=== PATIENT | female | born 1975 | race Asian ===

== ENCOUNTER 2023-09-04 09:24 | Inpatient (IN) ==
[2023-09-04] MEDS: Morphine 4 MG/ML VIAL (1 ml) IV ONE ×2 (10:20→14:32)
[2023-09-04] MEDS: Ondansetron 4 mg VIAL 2 MG/ML 2 ml VIAL IV ONE ×2 (10:20→13:10)
[2023-09-04] MEDS: Lactated Ringers 1000 ml BAG 1,000 ML IV ONE (10:34)
[2023-09-04 10:44] LABS: Hematocrit 20.7 % (35-45); Hemoglobin 5.3 g/dL (11.5-14.3); Mean Corpuscular Hemoglobin 13.5 pg (27-33); Mean Corpuscular Hgb Conc 25.6 g/dL (31-36); Mean Corpuscular Volume 52.8 fL (80-97); Mean Platelet Volume 8.4 fL (7.5-11.2); Platelet Count 374 10^3/uL (150-450); Red Blood Count 3.93 10^6/uL (3.63-4.92); Red Cell Distribution Width 22.6 % (12-17); White Blood Count 15.8 10^3/uL (3.8-11.8)
[2023-09-04 11:07] LABS: ABS Basophils 0.1 10^3/uL (0.0-0.1); ABS Eosinophils 0.1 10^3/uL (0.0-0.5); ABS Lymphocytes 1.1 10^3/uL (1.0-4.8); ABS Monocytes 0.7 10^3/uL (0.0-0.9); ABS Neutrophils 13.9 10^3/uL (1.5-7.6); ABS Nucleated RBC 0.02 10^3/ul; Acanthocytes 1+; Eosinophil % 0.4 %; Hypochromasia 3+; Lymphocyte % 6.9 %; Microcytosis 2+; Nucleated Red Blood Cells % 0.1 %/100WBC (0.0-0.8); Stomatocytes 1+; Target Cells 2+
[2023-09-04 11:30] LABS: ALT 24 U/L (7-52); AST 19 U/L (13-39); Albumin 4.3 g/dL (3.2-5.2); Albumin/Globulin Ratio 1.8 (1-3); Alkaline Phosphatase 152 U/L (35-149); Anion Gap 10 mmol/L (2-16); Blood Urea Nitrogen 8 mg/dL (6-24); C Reactive Protein 69.95 mg/L (<8.01); CO2 Carbon Dioxide 26 mmol/L (22-32); Calcium 8.9 mg/dL (8.6-10.3); Chloride 102 mmol/L (101-111); Creatinine, Serum 0.74 mg/dL (0.51-0.95); Globulin 2.4 g/dL (2-4); Glucose 124 mg/dL (70-100); Lipase 10 U/L (11.0-82.0); Potassium 3.1 mmol/L (3.5-5.0); Sodium 138 mmol/L (135-145); Total Bilirubin 0.7 mg/dL (0.2-1.0); Total Protein 6.7 g/dL (6.4-8.9); eGFR CKD-EPI 100.4 (>60)
[2023-09-04 11:36] LABS: HCG Pregnancy < 0.60 mIU/mL
[2023-09-04 11:38] LABS: Urine Appearance Clear; Urine Bilirubin Negative (Negative); Urine Blood 3+ (Negative); Urine Color Colorless; Urine Glucose Negative (Negative); Urine Ketones Negative (Negative); Urine Nitrite Negative (Negative); Urine Protein Negative (Negative); Urine Specific Gravity 1.009 (1.002-1.030); Urine Urobilinogen Negative (Negative); Urine pH 5.5 (5.0-8.0)
[2023-09-04 11:38] LABS: ABS Basophils 0.1 10^3/uL (0.0-0.1); ABS Eosinophils 0.1 10^3/uL (0.0-0.5); ABS Lymphocytes 1.3 10^3/uL (1.0-4.8); ABS Monocytes 0.7 10^3/uL (0.0-0.9); ABS Neutrophils 13.8 10^3/uL (1.5-7.6); ABS Nucleated RBC 0.02 10^3/ul; Eosinophil % 0.4 %; Hemoglobin 4.9 g/dL (11.5-14.3); Lymphocyte % 8.3 %; Mean Corpuscular Hemoglobin 13.5 pg (27-33); Mean Corpuscular Hgb Conc 25.5 g/dL (31-36); Mean Corpuscular Volume 52.8 fL (80-97); Mean Platelet Volume 8.4 fL (7.5-11.2); Nucleated Red Blood Cells % 0.1 %/100WBC (0.0-0.8); Platelet Count 359 10^3/uL (150-450); Red Blood Count 3.61 10^6/uL (3.63-4.92); Red Cell Distribution Width 22.9 % (12-17)
[2023-09-04 11:59] LABS: Urine Bacteria Absent /HPF (Absent); Urine Red Blood Cell 3+(>10/hpf) /HPF (0-Trace); Urine Squamous Epithelial Cell Present /HPF (Absent); Urine White Blood Cell 1+(6-10/hpf) /HPF (0-Trace)
[2023-09-04] MEDS: hydrALAZINE 20 mg/ml 1 ML Vial IV IV SLOW PU ONE (13:23)
[2023-09-04] MEDS: Labetalol IV 5 MG/ML 20 ml VIAL IV PUSH ONE (13:50)
[2023-09-04] MEDS ORDERED: Lorazepam PYXIS KEY PRN (14:16)
[2023-09-04] MEDS: niCARdipine 0.1MG/ML IVPREMIX 20 MG/200 ML BAG IV SCH (14:24)
[2023-09-04] MEDS: LORazepam 2 mg VIAL 1 ml IV PUSH ONE (14:32)
[2023-09-04] MEDS: Magnesium Sulfate 2 gm BAG 2 GM/50 ML BAG IVPB ONE (14:48)
[2023-09-04] MEDS: KCL 20 MEQ/100 ML IVPREMIX 20 MEQ/100 ML BAG IV ONE (15:54)
[2023-09-04 18:01] LABS: % Iron Saturation 5 % (15-55); .Transferrin 311 mg/dL (203-362); Iron < 20 ug/dL (50-212); Total Iron Binding Capacity 435 mcg/dL (250-450); Unsaturated Iron Binding 415 ug/dL
[2023-09-04] MEDS: Ondansetron 4 mg VIAL 2 MG/ML 2 ml VIAL IV PRN (18:19)
[2023-09-04] MEDS ORDERED: Metoprolol Tartrate 5 mg VIAL 5 ml VIAL (1 mg/ml) IV PRN (18:24)
[2023-09-04 18:26] LABS: Mean Corpuscular Hemoglobin 18.7 pg (27-33); Mean Corpuscular Hgb Conc 29.6 g/dL (31-36); Mean Corpuscular Volume 63.3 fL (80-97); Mean Platelet Volume 8.3 fL (7.5-11.2); Platelet Count 364 10^3/uL (150-450); Red Blood Count 4.27 10^6/uL (3.63-4.92); Red Cell Distribution Width 34.3 % (12-17); White Blood Count 26.4 10^3/uL (3.8-11.8)
[2023-09-04 18:39] LABS: Ferritin 4.7 ng/mL (11-307)
[2023-09-04] MEDS ORDERED: Prochlorperazine 5 mg/ml 2 ml VIAL (10 mg) IV PRN (19:06)
[2023-09-04 19:15] LABS: ABS Basophils 0.1 10^3/uL (0.0-0.1); ABS Lymphocytes 1.5 10^3/uL (1.0-4.8); ABS Monocytes 0.9 10^3/uL (0.0-0.9); ABS Neutrophils 23.8 10^3/uL (1.5-7.6); ABS Nucleated RBC 0.02 10^3/ul; Eosinophil % 0.1 %; Lymphocyte % 5.6 %; Nucleated Red Blood Cells % 0.1 %/100WBC (0.0-0.8)
[2023-09-04 19:18] LABS: Acanthocytes 1+; Anisocytosis 2+; Hypochromasia 2+; Microcytosis 3+; Polychromasia 1+
[2023-09-04 20:53] LABS: High Sensitivity Troponin 1 Hr 10 pg/mL (<15)
[2023-09-04] MEDS: Ferric Gluconate IV 250 MG in NS 0.9% 250 ml 200 ML IVPB SCH (21:10)
[2023-09-04] MEDS: Morphine 2 MG/ML SYRINGE IV ONE (21:12)
[2023-09-04] MEDS: Morphine 2 MG/ML SYRINGE IV PRN (21:15)
[2023-09-04] MEDS ORDERED: Morphine 2 MG/ML SYRINGE IV PRN (21:23)
[2023-09-04 21:56] LABS: High Sensitivity Troponin 3 Hr 16 pg/mL (<15)
[2023-09-05 01:10] LABS: Hematocrit 26.2 % (35-45); Hemoglobin 7.8 g/dL (11.5-14.3); Mean Corpuscular Hemoglobin 18.5 pg (27-33); Mean Corpuscular Hgb Conc 29.9 g/dL (31-36); Mean Corpuscular Volume 61.8 fL (80-97); Mean Platelet Volume 8.3 fL (7.5-11.2); Platelet Count 383 10^3/uL (150-450); Red Blood Count 4.24 10^6/uL (3.63-4.92); Red Cell Distribution Width 33.5 % (12-17)
[2023-09-05 01:11] LABS: ABS Basophils 0.2 10^3/uL (0.0-0.1); ABS Lymphocytes 1.7 10^3/uL (1.0-4.8); ABS Neutrophils 25.1 10^3/uL (1.5-7.6); ABS Nucleated RBC 0.05 10^3/ul; Eosinophil % 0.1 %; Lymphocyte % 6.2 %; Nucleated Red Blood Cells % 0.2 %/100WBC (0.0-0.8)
[2023-09-05 01:13] LABS: Microcytosis 2+
[2023-09-05 01:14] LABS: Anisocytosis 3+; Hypochromasia 2+; Polychromasia 1+
[2023-09-05] MEDS: Labetalol IV 5 MG/ML 20 ml VIAL IV PUSH PRN (06:03)
[2023-09-05 06:40] LABS: ABS Basophils 0.2 10^3/uL (0.0-0.1); ABS Lymphocytes 1.8 10^3/uL (1.0-4.8); ABS Monocytes 1.4 10^3/uL (0.0-0.9); ABS Neutrophils 25.9 10^3/uL (1.5-7.6); ABS Nucleated RBC 0.07 10^3/ul; Eosinophil % 0.1 %; Hematocrit 25.9 % (35-45); Hemoglobin 7.8 g/dL (11.5-14.3); Lymphocyte % 6.1 %; Mean Corpuscular Hemoglobin 18.5 pg (27-33); Mean Corpuscular Volume 61.5 fL (80-97); Mean Platelet Volume 8.4 fL (7.5-11.2); Nucleated Red Blood Cells % 0.2 %/100WBC (0.0-0.8); Platelet Count 394 10^3/uL (150-450); Red Blood Count 4.21 10^6/uL (3.63-4.92); Red Cell Distribution Width 33.5 % (12-17); White Blood Count 29.4 10^3/uL (3.8-11.8)
[2023-09-05 06:41] LABS: Anion Gap 15 mmol/L (2-16); Anisocytosis 3+; Blood Urea Nitrogen 7 mg/dL (6-24); CO2 Carbon Dioxide 23 mmol/L (22-32); Calcium 8.5 mg/dL (8.6-10.3); Chloride 100 mmol/L (101-111); Cholesterol 143 mg/dL; Creatinine, Serum 0.57 mg/dL (0.51-0.95); Glucose 106 mg/dL (70-100); HDL Cholesterol 41.5 mg/dL; Hypochromasia 2+; LDL Cholesterol 74 mg/dL; Microcytosis 2+; Polychromasia 1+; Sodium 138 mmol/L (135-145); Triglycerides 140 mg/dL; eGFR CKD-EPI 112.7 (>60)
[2023-09-05 06:53] LABS: TSH Ultra Thyroid Stim Horm 3.49 mcIU/mL (0.34-5.60)
[2023-09-05] MEDS: Iohexol 300 (CONTRAST) 10 ML SDV IV ONE (10:13)
[2023-09-05 13:10] LABS: Trichomonas vag NAA Female Negative (Negative)
[2023-09-05 13:25] LABS: Chlamydia trachomatis NAA Negative (Negative); Neisseria gonorrhoeae (GC) NAA Negative (Negative)
[2023-09-05] MEDS: CMCS:NORETHINDRONE ACETATE 5 MG TAB (NF) PO SCH (13:39)
[2023-09-05] MEDS: Metoprolol Tartrate 5 mg VIAL 5 ml VIAL (1 mg/ml) IV PRN (15:56)
[2023-09-05] MEDS: KCL 20 MEQ/100 ML IVPREMIX 20 MEQ/100 ML BAG IV SCH (17:58)
[2023-09-05] MEDS ORDERED: Dextran 70/Hypromellose Tears Eye Drops 15 ml BTL (for Artificials Tears) BOTH EYES PRN (21:10)
[2023-09-05] MEDS: Olopatadine 0.1% OPHTH (NF) 1 DROP BTL BOTH EYES SCH (22:47)
[2023-09-06 04:44] LABS: Hemoglobin 6.5 g/dL (11.5-14.3); Mean Corpuscular Hemoglobin 18.2 pg (27-33); Mean Corpuscular Hgb Conc 29.6 g/dL (31-36); Mean Corpuscular Volume 61.4 fL (80-97); Mean Platelet Volume 8.3 fL (7.5-11.2); Platelet Count 353 10^3/uL (150-450); Red Blood Count 3.58 10^6/uL (3.63-4.92); Red Cell Distribution Width 34.4 % (12-17); White Blood Count 33.8 10^3/uL (3.8-11.8)
[2023-09-06 05:00] LABS: Calcium 8.2 mg/dL (8.6-10.3); Creatinine, Serum 0.53 mg/dL (0.51-0.95); Magnesium 1.9 mg/dL (1.9-2.7); Potassium 3.4 mmol/L (3.5-5.0); eGFR CKD-EPI 114.7 (>60)
[2023-09-06 05:22] LABS: ABS Eosinophils 0.2 10^3/uL (0.0-0.5); ABS Lymphocytes 1.7 10^3/uL (1.0-4.8); ABS Monocytes 1.4 10^3/uL (0.0-0.9); ABS Neutrophils 30.4 10^3/uL (1.5-7.6); ABS Nucleated RBC 0.05 10^3/ul; Eosinophil % 0.5 %; Lymphocyte % 5.1 %; Nucleated Red Blood Cells % 0.2 %/100WBC (0.0-0.8)
[2023-09-06] MEDS: Potassium Chlor 10 meq TAB PO SCH (06:14)
[2023-09-06] MEDS: Magnesium Sulfate IV 1GM/100ML 1 GM/100 ML BAG IV ONE (08:22)
[2023-09-06 09:59] LABS: Hematocrit 26.4 % (35-45); Hemoglobin 8.1 g/dL (11.5-14.3)
[2023-09-06 12:13] LABS: Mean Corpuscular Hemoglobin 19.7 pg (27-33); Mean Corpuscular Hgb Conc 30.2 g/dL (31-36); Mean Corpuscular Volume 65.3 fL (80-97); Mean Platelet Volume 8.7 fL (7.5-11.2); Platelet Count 345 10^3/uL (150-450); Red Cell Distribution Width 35.1 % (12-17); White Blood Count 31.5 10^3/uL (3.8-11.8)
[2023-09-06] MEDS: Senna TAB 8.6 mg TAB PO SCH (12:49)
[2023-09-06 13:08] LABS: ABS Basophils 0.1 10^3/uL (0.0-0.1); ABS Eosinophils 0.1 10^3/uL (0.0-0.5); ABS Lymphocytes 2.2 10^3/uL (1.0-4.8); ABS Neutrophils 28.1 10^3/uL (1.5-7.6); ABS Nucleated RBC 0.03 10^3/ul; Anisocytosis 2+; Eosinophil % 0.3 %; Hypochromasia 2+; Microcytosis 3+; Nucleated Red Blood Cells % 0.1 %/100WBC (0.0-0.8); Polychromasia 1+
[2023-09-06] MEDS: Metoprolol Tartrate 5 mg VIAL 5 ml VIAL (1 mg/ml) IV PRN (22:30)
[2023-09-07 06:25] LABS: Hematocrit 27.1 % (35-45); Hemoglobin 8.6 g/dL (11.5-14.3); Mean Corpuscular Hemoglobin 20.6 pg (27-33); Mean Corpuscular Hgb Conc 31.6 g/dL (31-36); Mean Platelet Volume 8.2 fL (7.5-11.2); Platelet Count 334 10^3/uL (150-450); Red Blood Count 4.17 10^6/uL (3.63-4.92); Red Cell Distribution Width 35.1 % (12-17)
[2023-09-07 07:11] LABS: Calcium 8.8 mg/dL (8.6-10.3); Creatinine, Serum 0.58 mg/dL (0.51-0.95); Potassium 3.6 mmol/L (3.5-5.0); eGFR CKD-EPI 112.3 (>60)
[2023-09-07 07:27] LABS: ABS Basophils 0.1 10^3/uL (0.0-0.1); ABS Eosinophils 0.2 10^3/uL (0.0-0.5); ABS Lymphocytes 1.9 10^3/uL (1.0-4.8); ABS Monocytes 0.7 10^3/uL (0.0-0.9); ABS Neutrophils 14.1 10^3/uL (1.5-7.6); ABS Nucleated RBC 0.02 10^3/ul; Anisocytosis 3+; Eosinophil % 0.9 %; Lymphocyte % 11.4 %; Nucleated Red Blood Cells % 0.1 %/100WBC (0.0-0.8); Polychromasia 1+; Tear Drop Cells 1+
[2023-09-07 14:14] VITALS: BP 177/109
== END 2023-09-07 14:20 | disposition home or self-care (01) | DRG 760 ==
LOC: ED 09:24 → EDHOLD 09:24 → SUATTDRO 14:55 → ICU 14:56 → MEDTELE 09-06 16:54
PROVIDERS: ADMIT Internal Medicine Critical Care Medicine; ATTEND Internal Medicine